=== PATIENT | female | born 1970 | race Caucasian/White ===

== ENCOUNTER 2018-02-22 08:55 | Day surgery (SDC) | payer OTHER ==
[2018-02-22 09:16] LABS: Specific Gravity 1.025 (1.005-1.030)
[2018-02-22] MEDS ORDERED: OXYMETAZOLINE HCL 0.05% 15ML NAS ONE ×4 (09:19→12:13)
[2018-02-22] MEDS ORDERED: Ringers Lactate 1,000 ML IV ONE (09:19)
--- NOTE | 2018-02-22 09:26 | EKG ---
Test Date: 2018-02-21 Test Time: 12:43:32 [employer]ducer: HELENA MEASUREMENT RESULTS: Intervals: Rate: 59 WV: 142 QRSD: 86 QT: 420 QTc: 415 [place]: P: 48 WV: 142 QRS: 66 T: 39 INTERPRETIVE STATEMENTS: Sinus bradycardia Otherwise normal ECG No previous ECG available for comparison Electronically Signed On 02-22-18 09:25:57 [employer] by Chavez Kemp
[2018-02-22] MEDS ORDERED: MIDAZOLAM HCL 2 MG/2 ML INJ ONE (11:24)
[2018-02-22] MEDS ORDERED: PROPOFOL 200 MG/20 ML VIAL IV ONE (11:24)
[2018-02-22] MEDS ORDERED: DEXAMETHASONE 10 MG/ML VIAL ONE (11:24)
[2018-02-22] MEDS ORDERED: FENTANYL CITR 250 MCG/5 ML ONE (11:25)
[2018-02-22] MEDS ORDERED: LIDOCAINE 1% MPF 2 ML AMPULE ONE (11:25)
[2018-02-22] MEDS ORDERED: ROCURONIUM 50 MG/5 ML VIAL IV ONE (11:25)
[2018-02-22] MEDS ORDERED: NA CHLORIDE 0.9% 500 ML ONE (12:13)
[2018-02-22] MEDS ORDERED: LIDOCAINE 1% W/EPI 1:100,000 MDV 50 ML VIAL ONE (12:13)
--- NOTE | 2018-02-22 13:37 | P.BOP ---
Preoperative diagnosis: chronic sphenoid sinusitis, chronic headache Postoperative diagnosis: same Primary procedure: NE with L sphenoidotomy Mailing Clerk: NONE,NONE Estimated blood loss: 10ml Specimen: none Anesthesia: General Complications: None Implants: none Fluids & blood products: crystalloid 900ml Transferred to: Recovery Room Condition: Good
[2018-02-22] MEDS ORDERED: ONDANSETRON 4 MG/2 ML VIAL ONE (14:20)
[2018-02-22] MEDS ORDERED: TRAMADOL HCL 50 MG TAB ONE (15:48)
--- NOTE | 2018-02-23 01:13 | OP ---
Date of Procedure: 02/22/2018 Surgeon: Mary Lizama MD Preoperative Diagnosis: Left chronic sphenoid sinusitis. Postoperative Diagnosis: Left chronic sphenoid sinusitis. Procedure: Nasal endoscopy with a left frontal sinusotomy and use of [employer] navigation, extradural , cranial. Indication For Procedure: Courtney Beltran presented to the ENT clinic complaining of chronic headach e. CT scan showed edema in the sphenoethmoid recess with opacification including air-fluid level and mucosal thickening of the left sphenoid sinus as an isolated finding. The risks, benefits, and alte rnatives to procedure were discussed with the patient who agreed to proceed. Description Of Procedure: The patient was brought to the operating room. She was placed under gener al anesthesia via endotracheal tube. The head of bed was turned 90 degrees. The nasal hairs were tr immed and the left nasal cavity was packed with Afrin-soaked pledgets. The patient's headpiece for t [employer] CT navigation system was attached to the patient's forehead and the preoperative CT scan was used to register using a laser pointer for surface matching. Once registration was complete, the accuracy was evaluated by [id number] registration including the tip of the nose, base of the col umella, glabella, and the bilateral medial and lateral canthi and accuracy was felt to be excellent. The patient's eyes were taped and a 0-degree endoscope was used to perform a nasal endoscopy. The n avigation suction was used to aid in identification of the sphenoid os. The os was very small and ca nnulation with the suction was not feasible. The balloon dilation device was then used to cannulate the sphenoid os and dilate it, however, remained too small to allow for adequate suctioning. The sue rodebrider including the 4 mm quad cut and the inferior turbinate blade were used to enlarging the os until the Saleem suction could be passed without difficulty into the sphenoid cavity. The cavity w as then thoroughly irrigated with multiple aliquots of 20 mL sterile saline until drainage run clear. There was no evidence of gross debris, fungal debris, or gross purulence. The area was thoroughly suctioned. Bleeding was controlled by application of Afrin-soaked pledgets. All pledgets were remov ed. Count was correct and the patient was returned to care of anesthesia for awakening, extubation i n the operating room. Specimens: None. Findings: Expected degree of inflammation within the sphenoethmoid recess. Disposition: The patient will be discharged home later today with routine post sinus surgery instruc tions and follow up with Dr. Lizama in 12-14 days. MARCIO Voice ID: [id number] Report ID: [id number]
== END 2018-02-22 16:14 | disposition home or self-care (01) ==
LOC: OR 08:55
PROVIDERS: ATTEND Otolaryngology
PROC: 09JY8ZZ Inspection of Sinus, Via Natural or Artificial Opening Endoscopic (ICD-10-PCS; 2018-02-22)
PROC: 8E09XBZ Computer Assisted Procedure of Head and Neck Region (ICD-10-PCS; principal; 2018-02-22 11:00)
DX: J32.3 Chronic sphenoidal sinusitis (principal); R51 Headache
CPT/HCPCS: 81025; 93005; J1100; J2001; J2250; J2405; J2704; J3010